=== PATIENT | female | born 1960 | race Caucasian/White ===

== ENCOUNTER 2022-10-09 16:10 | Inpatient (IN) | payer BC ==
--- OUTSIDE RECORDS SUMMARY | 2022-10-09 16:14 | XMS REPORT | Continuity of Care Document ---
:1960 Author Organization [facility] t Address [address] [place] [address] [place] [id number] Care Team Providers Name Role Phone Asked, No Pcp Primary Care Physician Unavailable Jeanmarie MORELOS, Edgar Rodríguez Attending Clinician [phone] Crispin MORELOS, Boazmegan Maurer Attending Clinician Micah MORELOS, Jenny Collazo Attending Clinician Doctor Unassigned, [place] Attending Clinician Unavailable SCOTTY RAMOS Attending Clinician Unavailable Neurology Attending Clinician Unavailable JEREL CAMACHO Attending Clinician Unavailable Jerel Camacho MD Attending Clinician Lab, Adc Fam Pob I Attending Clinician Unavailable Farida Mtz Attending Clinician FARIDA MENA Attending Clinician Unavailable BOAZ ROA Admitting Clinician Unavailable Payers Payer Name Policy Type Policy Number Effective Date Expiration Date S ource Problems Condition Condition Condition Status Onset Resolution Last Treating Co mments Source Name Details Category Date Date Treatment Clinician Date 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 11-07 nodule nodule 00:00: Hospita 00 l Pulmonary Pulmonary Disease Active Met hodi emphysema emphysema 11-07 00:00: Hospita 00 l Depression Depression Disease Active M ethodi 11-07 00:00: Hospita 00 l Arthritis Arthritis Disease Active Met hodi 11-07 st 00:00: Hospita 00 l Anxiety Anxiety Disease Active Methodi 6-22 st 00:00: Hospita 00 l Neuropathy Neuropathy Disease Active U nivers of both of both 9-16 ity of feet feet 00:00: [address] Neuropathy Neuropathy Disease Active M ethodi of both of both 9-16 st feet feet 00:00: Hospita 00 l COPD COPD Disease Active Univers (chronic (chronic ity of obstructiv obstructiv [place] [facility] pulmonary pulmonary Bran ch disease) disease) Fever, Fever, Diagnosis Active Common unspecifie unspecifie Sp dionte d fever d fever - [facility] cause cause [facility] Pulmonary Pulmonary Diagnosis Active C ommon emphysema, emphysema, Sp dionte unspecifie unspecifie - [facility] d d [facility] emphysema emphysema Luke s [facility] Center Cough Cough Diagnosis Active Common [facility] - [facility] Allergies, Adverse Reactions, Alerts Allergy Allergy Status Severity Reaction(s) Onset Inactive Treating Comm ents Source Name Type Date Date Clinician NO KNOWN Drug Active Univers ALLERGIE Class ity of S [facility] Social History Social Habit Start Date Stop Date Quantity Comments Source Exposure to [facility] University of SARS-CoV-2 (event) [facility] History SDAZ University o f Alcohol Std Drinks [place] [facility] [place] History [facility] University o f Alcohol Binge [facility] [place] History of tobacco Smokes tobacco Me thodist use daily Hospital Gender identity [facility] Sexual orientation [facility] Alcohol intake 2021-11-09 2021-11-09 Ex-drinker Confucianism 00:00:00 00:00:00 (finding) Hospital History of Social 2021-11-09 2021-11-[address] function 00:00:00 00:00:00 Hospital Cigarettes smoked 2021-11-07 2021-11-[address] current (pack per 00:00:00 00:00:00 Hospita l day) - Reported Cigarette 2021-11-07 2021-11-07 Confucianism pack-years 00:00:00 00:00:00 Hospital Tobacco use and 2021-11-07 2021-11-07 Smokeless Confucianism exposure 00:00:00 00:00:00 tobacco non-user Hospital History SDOH 2019-01-21 2019-01-21 1 University o f Alcohol Frequency 00:00:00 00:00:00 [place] [facility] Sex Assigned At [birth year] Confucianism 00:00:00 00:00:00 Hospital Smoking Status Start Date Stop Date Source Smokes tobacco daily 2021-11-07 00:00:00 [facility] Unknown if ever smoked [facility] Medications Ordered Filled Start Stop Current Ordering Indication Dosage Frequency Signature Comments Components Source Medication Medication Date Date Medication? Clinician (SIG) Name Name levoFLOXaci 2021- No 750mg QD Take 1 Me thodi n 6-26 07-[address] (Levaquin) 00:00: 04:59 (750 mg Hos margaret 750 MG 00 :00 total) by l tablet mouth daily for 7 days. Trelegy Yes 1{each} QD Inhale 1 Met hodi Ellipta 4-[address] 100-62.5-25 00:00: daily. Hosp jamar mcg blister 00 l with device powder for inhalation azithromyci 2021- No 250mg QD Take 250 Methodi n 3-30 06-[address] (ZITHROMAX) 00:00: 00:00 mouth Hosp jamar 250 MG 00 :00 daily. l tablet albuterol Yes 1{puff} Inhale 1 M ethodi (PROAIR 3-[address] HFA) 90 00:00: needed. Hospita mcg/actuati 00 l on inhaler ALBUTEROL Yes [id number] INHALE TWO Univers 90 2-13 (2) PUFFS ity of mcg/actuati 00:00: [place]TH [place] inhaler 00 EVERY 4 Medica l HOURS Branch NEEDED FOR WHEEZING OR SHORTNESS OF BREATH. ALBUTEROL Yes [id number] INHALE TWO Univers 90 2-13 (2) PUFFS ity of mcg/actuati 00:00: [place]TH [place] inhaler 00 EVERY 4 Medica l HOURS Branch NEEDED FOR WHEEZING OR SHORTNESS OF BREATH. ALBUTEROL Yes [id number] INHALE TWO Univers 90 2-13 (2) PUFFS ity of mcg/actuati 00:00: [place]TH [place] inhaler 00 EVERY 4 Medica l HOURS Branch NEEDED FOR WHEEZING OR SHORTNESS OF BREATH. ALBUTEROL Yes [id number] INHALE TWO Univers 90 2-13 (2) PUFFS ity of mcg/actuati 00:00: [place]TH [place] inhaler 00 EVERY 4 Medica l HOURS Branch NEEDED FOR WHEEZING OR SHORTNESS OF BREATH. ALBUTEROL Yes [id number] INHALE TWO Univers 90 2-13 (2) PUFFS ity of mcg/actuati 00:00: [place]TH [place] inhaler 00 EVERY 4 Medica l HOURS Branch NEEDED FOR WHEEZING OR SHORTNESS OF BREATH. ALBUTEROL Yes [id number] INHALE TWO Univers 90 2-13 (2) PUFFS ity of mcg/actuati 00:00: [place]TH [place] inhaler 00 EVERY 4 Medica l HOURS Branch NEEDED FOR WHEEZING OR SHORTNESS OF BREATH. albuterol-i 2018-05 Yes 1{puff} Inhale 1 Univers pratropium 1-19 Puff 4 ity of 20-100 20:45: (four) [place] mcg/actuati 33 times Medical on inhaler daily. Branch albuterol-i 2018-05 Yes 1{puff} Inhale 1 Univers pratropium 1-19 Puff 4 ity of 20-100 20:45: (four) [place] mcg/actuati 33 times Medical on inhaler daily. Branch albuterol-i 2018-05 Yes 1{puff} Inhale 1 Univers pratropium 1-19 Puff 4 ity of 20-100 20:45: (four) [place] mcg/actuati 33 times Medical on inhaler daily. Branch albuterol-i 2018-05 Yes 1{puff} Inhale 1 Univers pratropium 1-19 Puff 4 ity of 20-100 20:45: (four) [place] mcg/actuati 33 times Medical on inhaler daily. Branch albuterol-i 2018-05 Yes 1{puff} Inhale 1 Univers pratropium 1-19 Puff 4 ity of 20-100 20:45: (four) [place] mcg/actuati 33 times Medical on inhaler daily. Branch albuterol-i 2018-05 Yes 1{puff} Inhale 1 Univers pratropium 1-19 Puff 4 ity of 20-100 20:45: (four) [place] mcg/actuati 33 times Medical on inhaler daily. Branch venlafaxine Yes [id number] 37.5mg Take 1 Univers XR (EFFEXOR 9-24 capsule by it y of XR) 37.5 mg 00:00: mouth [place] 24 hr 00 daily with Medical capsule breakfast. Branch STOP CITALOPRAM . venlafaxine Yes [id number] 37.5mg Take 1 Univers XR (EFFEXOR 9-24 capsule by it y of XR) 37.5 mg 00:00: mouth [place] 24 hr 00 daily with Medical capsule breakfast. Branch STOP CITALOPRAM . venlafaxine Yes [id number] 37.5mg Take 1 Univers XR (EFFEXOR 9-24 capsule by it y of XR) 37.5 mg 00:00: mouth [place] 24 hr 00 daily with Medical capsule breakfast. Branch STOP CITALOPRAM . venlafaxine Yes [id number] 37.5mg Take 1 Univers XR (EFFEXOR 9-24 capsule by it y of XR) 37.5 mg 00:00: mouth [place] 24 hr 00 daily with Medical capsule breakfast. Branch STOP CITALOPRAM . venlafaxine Yes [id number] 37.5mg Take 1 Univers XR (EFFEXOR 9-24 capsule by it y of XR) 37.5 mg 00:00: mouth [place] 24 hr 00 daily with Medical capsule breakfast. Branch STOP CITALOPRAM . venlafaxine Yes [id number] 37.5mg Take 1 Univers XR (EFFEXOR 9-24 capsule by it y of XR) 37.5 mg 00:00: mouth [place] 24 hr 00 daily with Medical capsule breakfast. Branch STOP CITALOPRAM . albuterol 2020- No [id number] 2{puff} Inhale 2 Univers 90 924 02-13 Puffs ity of mcg/actuati 00:00: 00:00 every 4 [place] inhaler 00 :00 (four) Medical hours as Branch needed for Wheezing or Shortness of Breath. lidocaine Yes [id number] 5mL Take 5 mL Univers 2% viscous 9-21 by mouth ity o f (LIDOCAINE 00:00: every 4 [place] VISCOUS) 2 00 (four) Medical % solution hours as Branc h needed for Local anesthesia . lidocaine Yes [id number] 5mL Take 5 mL Univers 2% viscous 9-21 by mouth ity o f (LIDOCAINE 00:00: every 4 [place] VISCOUS[place] 2 00 (four) Medical % solution hours as Branc h needed for Local anesthesia . lidocaine 2019-0 Yes [id number] 5mL Take 5 mL Univers 2% viscous 9-21 by mouth ity o f (LIDOCAINE 00:00: every 4 [place] VISCOUS[place] 2 00 (four) Medical % solution hours as Branc h needed for Local anesthesia . lidocaine 2019-0 Yes [id number] 5mL Take 5 mL Univers 2% viscous 9-21 by mouth ity o f (LIDOCAINE 00:00: every 4 [place] VISCOUS) 2 00 (four) Medical % solution hours as Branc h needed for Local anesthesia . lidocaine 2019-0 Yes [id number] 5mL Take 5 mL Univers 2% viscous 9-21 by mouth ity o f (LIDOCAINE 00:00: every 4 [place] VISCOUS) 2 00 (four) Medical % solution hours as Branc h needed for Local anesthesia . lidocaine 2018-0 Yes [id number] 5mL Take 5 mL Univers 2% viscous 9-21 by mouth ity o f (LIDOCAINE 00:00: every 4 [place] VISCOUS) 2 00 (four) Medical % solution hours as Branc h needed for Local anesthesia . gabapentin 2019-0 Yes [id number] 100mg Take 1 Univers 100 mg 9-05 capsule by ity of capsule 00:00: mouth 3 (three) Medical times Branch daily. gabapentin 2019-0 Yes Univers 100 mg 9-05 ity of capsule 00:00: [place] [facility] citalopram 2019-0 Yes Univers 10 mg 9-05 ity of tablet 00:00: [place] 00 Medical Branch gabapentin 2019-0 Yes [id number] 100mg Take 1 Univers 100 mg 9-05 capsule by ity of capsule 00:00: mouth 3 (three) Medical times Branch daily. gabapentin 2019-0 Yes Univers 100 mg 9-05 ity of capsule 00:00: [place] [facility] citalopram 2019-0 Yes Univers 10 mg 9-05 ity of tablet 00:00: Medical Branch gabapentin 2019-0 Yes [id number] 100mg Take 1 Univers 100 mg 9-05 capsule by ity of capsule 00:00: mouth 3 (three) Medical times Branch daily. gabapentin 2019-0 Yes Univers 100 mg 9-05 ity of capsule 00:00: [place] 00 Medical Branch citalopram 2019-0 Yes Univers 10 mg 9-05 ity of tablet 00:00: 00 Medical Branch gabapentin 2019-0 Yes [id number] 100mg Take 1 Univers 100 mg 9-05 capsule by ity of capsule 00:00: mouth 3 (three) Medical times Branch daily. citalopram 2019-0 Yes Univers 10 mg 9-05 ity of tablet 00:00: 00 Medical Branch gabapentin 2019-0 Yes [id number] 100mg Take 1 Univers 100 mg 9-05 capsule by ity of capsule 00:00: mouth 3 (three) Medical times Branch daily. citalopram 2019-0 Yes Univers 10 mg 9-05 ity of tablet 00:00: 00 Medical Branch gabapentin 2019-0 Yes [id number] 100mg Take 1 Univers 100 mg 9-05 capsule by ity of capsule 00:00: mouth 3 (three) Medical times Branch daily. citalopram 2019-0 Yes Univers 10 mg 9-05 ity of tablet 00:00: 00 Medical Branch gabapentin 2019-0 Yes [id number] 100mg Take 1 Univers 100 mg 9-05 capsule by ity of capsule 00:00: mouth 3 (three) Medical times Branch daily. citalopram 2019-0 Yes [id number] 10mg Take 1 Univers 10 mg 9-05 tablet by ity of tablet 00:00: mouth 00 daily. Medical Branch gabapentin 2019-0 Yes [id number] 100mg Take 1 Univers 100 mg 9-05 capsule by ity of capsule 00:00: mouth 3 (three) Medical times Branch daily. citalopram 2019-0 Yes [id number] 10mg Take 1 Univers 10 mg 9-05 tablet by ity of tablet 00:00: mouth 00 daily. Medical Branch gabapentin 2019-0 Yes [id number] 100mg Take 1 Univers 100 mg 9-05 capsule by ity of capsule 00:00: mouth 3 (three) Medical times Branch daily. citalopram 2019-0 Yes [id number] 10mg Take 1 Univers 10 mg 9-05 tablet by ity of tablet 00:00: mouth [place] 00 daily. Medical Branch gabapentin 2019-0 Yes [id number] 100mg Take 1 Univers 100 mg 9-05 capsule by ity of capsule 00:00: mouth 3 [place] 00 (three) Medical times Branch daily. citalopram 2019- Yes [id number] 10mg Take 1 Univers 10 mg 9-05 tablet by ity of tablet 00:00: mouth [place] 00 daily. Medical Branch gabapentin 2018- 2020- No Univer s 100 mg 9-05 11-10 ity of capsule 00:00: 00:00 [place] 00 :00 Medical Branch STIOLTO 2019- Yes INHALE TWO Univ ers RESPIMAT 6-21 (2) ity of 2.5-2.5 00:00: PUFF(S) BY [place] mcg/actuati 00 MOUTH Medical on Mist EVERY 24 Branch HOURS. STIOLTO Yes INHALE TWO Univ ers RESPIMAT 6-21 (2) ity of 2.5-2.5 00:00: PUFF(S) BY [place] mcg/actuati 00 MOUTH Medical on Mist EVERY 24 Branch HOURS. STIOLTO Yes INHALE TWO Univ ers RESPIMAT 6-21 (2) ity of 2.5-2.5 00:00: PUFF(S) BY [place] mcg/actuati 00 MOUTH Medical on Mist EVERY 24 Branch HOURS. STIOLTO Yes INHALE TWO Univ ers RESPIMAT 6-21 (2) ity of 2.5-2.5 00:00: PUFF(S) BY [place] mcg/actuati 00 MOUTH Medical on Mist EVERY 24 Branch HOURS. STIOLTO Yes INHALE TWO Univ ers RESPIMAT 6-21 (2) ity of 2.5-2.5 00:00: PUFF(S) BY [place] mcg/actuati 00 MOUTH Medical on Mist EVERY 24 Branch HOURS. STIOLTO Yes INHALE TWO Univ ers RESPIMAT 6-21 (2) ity of 2.5-2.5 00:00: PUFF(S) BY [place] mcg/actuati 00 MOUTH Medical on Mist EVERY 24 Branch HOURS. STIOLTO Yes INHALE TWO Univ ers RESPIMAT 6-21 (2) ity of 2.5-2.5 00:00: PUFF(S) BY [place] mcg/actuati 00 MOUTH Medical on Mist EVERY 24 Branch HOURS. STIOLTO Yes INHALE TWO Univ ers RESPIMAT 6-21 (2) ity of 2.5-2.5 00:00: PUFF(S) BY [place] mcg/actuati 00 MOUTH Medical on Mist EVERY 24 Branch HOURS. STIOLTO Yes INHALE TWO Univ ers RESPIMAT 6-21 (2) ity of 2.5-2.5 00:00: PUFF(S) BY [place] mcg/actuati 00 MOUTH Medical on Mist EVERY 24 Branch HOURS. STIOLTO Yes INHALE TWO Univ ers RESPIMAT 6-21 (2) ity of 2.5-2.5 00:00: PUFF(S) BY [place] mcg/actuati 00 MOUTH Medical on Mist EVERY 24 Branch HOURS. Spiriva Spiriva 2018- No Silvia Fay 2 puffs Common Respimat Respimat 05-28 Spirit 00:00: 00:00 - [facility] 00 :00 [facility] PredniSONE PredniSONE 2019- No Silvia Fay 1 tablet Common 05-28 Spirit 00:00: 00:00 - [facility]I 00 :00 [facility] Azithromyci Azithromyci 2018- No Silvia Fay 2 table ts Common n n 05-28 on the Spirit 00:00: 00:00 first day, - [facility] 00 :[address] [facility] daily for Medical 4 days Center albuterol Yes 2{puff} Inhale 2 U nivers 90 2-17 Puffs ity of mcg/actuati 00:00: every 4 [place] on inhaler 00 (four) Medical hours as Branch needed for Wheezing or Shortness of Breath. oxymetazoli Yes 1{spray Use 1 Un janet ne 0.05 % 2-17 } Kathleen in ity of nasal spray 00:00: each [place] 00 nostril 2 Medical (two) Branch times daily. DISCARD AFTER 3 DAYS. USE MAY BE ADDICTIVE AFTER 4 DAYS USE. albuterol Yes 2{puff} Inhale 2 U nivers 90 2-17 Puffs ity of mcg/actuati 00:00: every 4 [place] on inhaler 00 (four) Medical hours as Branch needed for Wheezing or Shortness of Breath. sod Yes 1{bottl Use 1 Univers chlor-bicar 2-17 e} Bottle in ity of b-squeez 00:00: each [place] bottle 00 nostril 2 Medical (NEILMED (two) Branch SINUS RINSE times COMPLETE) daily. Use pkdv in hot shower 1 hour before bedtime albuterol Yes 2{puff} Inhale 2 U nivers 90 2-17 Puffs ity of mcg/actuati 00:00: every 4 [place] on inhaler 00 (four) Medical hours as Branch needed for Wheezing or Shortness of Breath. albuterol Yes 2{puff} Inhale 2 U nivers 90 2-17 Puffs ity of mcg/actuati 00:00: every 4 [place] on inhaler 00 (four) Medical hours as Branch needed for Wheezing or Shortness of Breath. albuterol Yes 2{puff} Inhale 2 U nivers 90 2-17 Puffs ity of mcg/actuati 00:00: every 4 [place] on inhaler 00 (four) Medical hours as Branch needed for Wheezing or Shortness of Breath. oxymetazoli 2019- No 1{spray Use 1 U nivers ne 0.05 % 17 -05 } [place] in ity o f nasal spray 00:00: 00:00 each [place] 00 :00 nostril 2 Medical (two) Branch times daily. DISCARD AFTER 3 DAYS. USE MAY BE ADDICTIVE AFTER 4 DAYS USE. sod 2019- No 1{bottl Use 1 Univers chlor-bicar 2-17 09-05 e} Bottle in it y of b-squeez 00:00: 00:00 each [place] bottle 00 :00 nostril 2 Medical (NEILMED (two) Branch SINUS RINSE times COMPLETE) daily. Use pkdv in hot shower 1 hour before bedtime oxymetazoli 2019- No 1{spray Use 1 U nivers ne 0.05 % 217 09-05 } [place] in ity o f nasal spray 00:00: 00:00 each [place] 00 :00 nostril 2 Medical (two) Branch times daily. DISCARD AFTER 3 DAYS. USE MAY BE ADDICTIVE AFTER 4 DAYS USE. sod 2019- No 1[facility]l [facility]} Bottle in it y of b-squeez 00:00: 00:00 each [place] bottle 00 :00 nostril 2 Medical (NEILMED (two) Branch SINUS RINSE times COMPLETE) daily. Use pkdv in hot shower 1 hour before bedtime ProAir HFA ProAir HFA Yes Silvia Fay 2 puffs as Common needed Spirit - [facility] Immunizations Ordered Filled Immunization Date Status Comments Sourc e Immunization Name Name SARS-COV-2 COVID-19 2020-06-24 Completed Unive rsity of MODERNA VACCINE 00:00:00 [place] Med ical Branch MODERNA COVID-19 2020-06-24 Completed Methodis t MRNA VACCINATION 00:00:00 [facility] MODERNA COVID-19 2020-05-27 Completed Methodis t MRNA VACCINATION 00:00:00 Hospital Vital Signs Vital Name Observation Time Observation Value Comments Source Systolic blood 2019-01-21 14:21:00 108 mm[Hg] [facility] Diastolic blood 2019-01-21 14:21:00 62 mm[Hg] Unive [facility] Heart rate 2019-01-21 14:21:00 73 /min [facility] Body temperature 2019-01-21 14:21:00 [facility].06 [facility] height 2019-01-21 14:21:00 157.5 cm [facility] Body weight 2019-01-21 14:21:00 45.904 kg [facility] BMI 2019-01-21 14:21:00 18.51 kg/m2 [facility] Systolic blood 2021-11-07 19:43:00 105 mm[Hg] [facility] pressure Diastolic blood 2021-11-07 19:43:00 52 mm[Hg] [facility] pressure Heart rate 2021-11-07 19:43:00 147 [facility] O[facility] in 2021-11-07 19:43:00 91 /min [facility] Arterial blood by Pulse oximetry Respiratory rate 2021-11-07 19:20:00 27 /min [facility] Body temperature 2021-11-07 18:56:00 36.61 [facility] Body height 2021-11-07 15:28:00 157.5 cm [facility] Body weight 2021-11-07 15:28:00 43.863 kg [facility] BMI 2021-11-07 15:28:00 17.69 kg/m2 [facility] Procedures Procedure Date / Time Performing Clinician Source Performed PET CT SKULL BASE TO MID 2022-04-23 18:16:48 [facility] THIGH A. POC GLUCOSE 2022-04-23 16:46:00 [facility] A. SURGICAL PATHOLOGY REQUEST 2021-11-07 20:43:00 [facility] XR CHEST 1 VW PORTABLE 2021-11-07 19:10:13 [facility] CYTOLOGY 2021-11-07 19:00[facility]00 [facility] REQUEST RESPIRATORY CULTURE 2021-11-07 19:00:00 [facility] AFB CULTURE 2021-11-07 19:00:00 [facility] spital [facility] FUNGUS CULTURE 2021-11-07 19:00:00 [facility] spital [facility] RESPIRATORY PATHOGEN PANEL 2021-11-07 19:00:00 [facility] WITH COVID-19 RT-PCR [facility] GRAM STAIN 2021-11-07 19:00:00 [facility] Ho spital [place] AFB STAIN 2021-11-07 19:00:00 [facility] spital [place] CYTOMEGALOVIRUS BY PCR 2021-11-07 19:00:00 [facility] VARICELLA ZOSTER BY PCR 2021-11-07 19:00:00 [facility] BAL CELL COUNT AND 2021-11-07 19:00:00 [place] DIFFERENTIAL [facility] BAL T4T8 2021-11-07 19:00:00 Crispin, Boaz [facility]uc[facility]ism Ho spital [place] OR [place] > 1 HOUR 2021-11-07 18:45:00 Roa, Boaz [facility]uc[facility]ism Ho spital [place] CYTOLOGY 2021-11-07 17:47:00 Crispin, Boaz Confucianism Ho spital (NON-GYNECOLOGICAL) [place] REQUEST NE AN ELECTIVE 2021-11-07 17:18:00 [facility] ENDOTRACHEAL AIRWAY BRONCHOSCOPY 2021-11-07 17:11:00 Boaz Roa Ho spital [place] POC PANEL 2021-11-07 15:51:00 Crispin Boaz [facility]uc[facility]ism Ho spital [place] PROTHROMBIN TIME WITH INR, 2021-11-07 15:48:00 Boaz Roa [facility] I-STAT [place] ECG 12-LEAD 2021-11-07 15:35:42 [facility] CT CHEST WO CONTRAST 2021-10-22 18:51:46 Boaz Roa [facility] VACCINATIONS - CONSENTS, 2020-07-10 06:01:00 Doctor Unassigned, [facility] ELIGIBILITY, HISTORY [place] [facility] MAGNESIUM 2019-01-21 14:57:00 Jerel Camacho [facility] VITAMIN B12, LEVEL 2019-01-21 14:57:00 Jerel Camacho [facility] THYROID STIMULATING 2019-01-21 14:57:[address] [facility] HORMONE [facility] COMP. METABOLIC PANEL 2019-01-21 14:57:00 [id number] CBC WITH DIFFERENTIAL 2019-01-21 14:57:00 Jerel Camacho Un [facility] GLYCOSYLATED HEMOGLOBIN 2019-01-21 14:57:[address] [facility] (A1C) [facility] HCV ANTIBODY 2019-01-21 14:57:00 Jerel Camacho [facility] VITAMIN D, 25-OH 2019-01-21 14:57:00 Jerel Camacho [facility] ADC OR CARYL ANDREA - RPR 2019-01-21 14:57:00 Jerel Camacho [facility] CONSENT/REFUSAL FOR 2019-01-21 13:36:14 Doctor Unassigned, [facility] DIAGNOSIS AND TREATMENT [place] [facility] [place] ASSIGNMENT OF BENEFITS 2019-01-21 13:35:57 Doctor Unassigned, [facility] [place] [facility] [place] Plan of Care Planned Activity Planned Date Details Comments Source Future Scheduled 2022-08-20 Pneumococcal Vaccine: [facility] Test 07:42:51 Pediatrics (0 to 5 Years) and At-Risk Patients (6 to 64 Years) (1 - PCV) [code = Pneumococcal Vaccine: Pediatrics (0 to 5 Years) and At-Risk Patients (6 to 64 Years) (1 - PCV)] Future Scheduled 2022-08-20 Hepatitis C screening [facility] Test 07:42:51 (procedure) [code = 464760870] Future Scheduled 2022-08-20 Screening for [facility] Test 07:42:51 malignant neoplasm of cervix (procedure) [code = 476374438] Future Scheduled 2022-08-20 BREAST CANCER [facility] Test 07:42:51 SCREENING [code = BREAST CANCER SCREENING] Future Scheduled 2022-08-20 COLONOSCOPY SCREENING [facility] Test 07:42:51 [code = COLONOSCOPY SCREENING] Future Scheduled 2022-08-20 Screening for [facility] Test 07:42:51 malignant neoplasm of lung (procedure) [code = 124160598] Future Scheduled 2022-08-20 SHINGLES VACCINES (1 Met [facility] Test 07:42:51 of 2) [code = SHINGLES VACCINES (1 of 2)] Future Scheduled 2022-08-20 COVID-19 VACCINE (3 - Me [facility] [place] [facility] Test 07:42:51 Booster for Moderna series) [code = COVID-19 VACCINE (3 - Booster for Moderna series)] Future Scheduled 2022-08-20 INFLUENZA VACCINE Method t Hospital Test 07:42:51 [code = INFLUENZA VACCINE] Encounters Start End Encounter Admission Attending Care Care Encounter Source Date/Time Date/Time Type Type Clinicians Facility Department ID 2022-04-23 2022-04-23 [facility] Jeanmarie [id number] Methodi 10:36:40 23:59:00 Encounter Edgar A. [id number] [id number] Hospit a .[id number] l .8 2022-04-23 2022-04-23 Outpatient JEANMARIE, [facility] [id number] [place] 00:00:00 00:00:00 EDGAR Ludwig[address] [facility] 2022-04-23 2022-04-23 Travel [id number] Methodi 00:00:00 00:00:[id number] 3.430.2.7 [id number] Ho spita .[id number] 084.8 l .8 2022-02-28 2022-02-28 Orders Jeanmarie, [id number] Methodi 00:00:00 00:00:00 Only Edgar Nobles. [id number] s t 3.430.2.7 Hospit a .[id number] l .8 2021-11-11 2021-11-11 Orders Roa, 1.2.840.1 [id number] [id number] Methodi 00:00:00 00:00:00 Only Boaz Erasto 60530.1.[address] 3.430.2.7 Hospit a .3.766614 l .8 2021-11-07 2021-11-07 [facility] Roa, 1.2.840.1 [id number] 050 [id number] Methodi 10:08:00 14:52:00 Encounter Boaz Erasto 10525.1.[address] 3.430.2.7 Hospit a .3.717862 l .8 2021-11-07 2021-11-07 Surgery [facility], 1.2.840.1 [id number] 2099 [id number] Methodi 12:00:00 14:00:[address] 3.430.2.7 Hospit a .3.655043 l .8 2021-11-07 2021-11-07 Anesthesia Obrien, 1.2.840.1 [id number] 21 [id number] Methodi 12:12:00 13:58:00 Event Jenny Collazo 58703.1.1 676 s t 3.430.2.7 Hospit a .3.713069 l .8 2021-11-07 2021-11-07 Travel 1.2.840.1 1.2.311.375 2453 610282 Methodi 00:00:00 00:00:[address] 3.430.2.7 0.2.7.3.698 Ho spita .3.672425 084.8 l .8 2021-11-07 2021-11-07 [facility] 021 17830 06791 [place] 00:00:00 00:00:00 BOAZ [address] 2021-10-24 2021-10-24 Documentat [facility], 1.2.840.1 [id number] 2 [id number] Methodi 00:00:00 00:00:00 ion Boaz Maurer 02083.1.[address] 3.430.2.7 Hospit a .3.654828 l .8 2021-10-22 2021-10-22 [facility], 1.2.840.1 [id number] 926 [id number] Methodi 13:08:52 23:59:00 Encounter Boazmegan Maurer 12045.1.[address] 3.430.2.7 Hospit a .3.841046 l .8 2021-10-22 2021-10-22 Travel 1.2.840.1 1.2.864.217 3696 [id number] Methodi 00:00:00 00:00:[address] 3.430.2.7 0.2.7.3.698 Ho spita .3.796330 084.8 l .8 2021-10-22 2021-10-22 Outpatient [facility] [id number] 74961 [place] 00:00:00 00:00:00 BOAZ [address] 2021-10-11 2021-10-11 Travel 1.2.840.1 1.2.389.735 8291 [id number] Methodi 00:00:00 00:00:[address] 3.430.2.7 0.2.7.3.698 Ho spita .3.916963 084.8 l .8 2021-10-10 2021-10-10 Transcribe Crispin, 1.2.840.1 [id number] 2 [id number] Methodi 00:00:00 00:00:00 Orders Boaz Erasto 18819.1.[address] 3.430.2.7 Hospit a .3.660997 l .8 2020-07-10 2020-07-10 Orders Doctor SILVESTRE 1.2.840.114 [id number] Univers 00:00:00 00:00:00 Only Unassigned, MAICO 350.1.13.10 ity of [facility] 4.2.7.2.686 Skinny as [phone] [facility] [address] 2020-05-05 2020-05-05 [facility] [id number] Univers 13:00:00 13:00:00 SCOTTY itchau of [facility] 2020-04-27 2020-04-27 Letter Neurology UNIVERSIT 1.2.840.114 [id number] Univers 00:00:00 00:00:00 (Out) Y HEALTH 350.1.13.10 i ty of [place] [phone] [facility] [address] 2020-03-28 2020-03-28 [facility] [id number] Univers 16:30:00 16:30:00 WONDIFUL ity o f [facility] 2020-03-28 2020-03-28 [facility] 1.2.840.114 [id number] Univers 07:12:14 16:20:03 ne Visit Wondiful A Health 350.1.13.10 ity of [place] 4.2.7.2.686 Skinny as Professio [phone] [address] Office [facility] One 2019-12-05 2019-12-05 Laboratory Lab, Adc Fam Pob I [facility] 1.2. 840.114 [id number] Univers 10:31:21 10:51:21 Only Farida [facility] 350.1.13.10 ity of [place] 4.2.7.2.686 Skinny as Professio [phone] [address] Office [facility] One 2019-12-05 2019-12-[address] [facility] [id number] Univers 10:40:00 10:40:00 FARIDA ity of [facility] 2019-12-05 2019-12-05 Letter Doctor SILVESTRE 1.2.840.114 [id number] Univers 00:00:00 00:00:00 (Out) Unassigned, MAICO 350.1.13.10 ity of [place] [facility] 4.2.7.2.686 Skinny as [phone] [address] 2019-07-01 2019-07-01 [facility] 1.2.840.114 [id number] Univers 00:00:00 00:00:00 Wondiful A Health 350.1.13.10 ity of [place] 4.2.7.2.686 Skinny as Professio [phone] [address] Office [facility] One 2019-02-03 2019-02-03 Telephone Doug [facility] 1.2.840.114 [id number] Univers 00:00:00 00:00:00 Wondiful A Health 350.1.13.10 ity of [place] 4.2.7.2.686 Skinny as Professio [phone] [address] Office [facility] One 2019-01-27 2019-01-27 Telephone Doug [facility] 1.2.840.114 [id number] Univers 00:00:00 00:00:00 Wondiful [facility] Health 350.1.13.10 ity of [place] 4.2.7.2.686 Skinny as Professio [phone] [address] Office [facility] One 2019-01-21 2019-01-21 Office Doug [facility] 1.2.840.114 [id number] Univers 08:40:26 10:09:31 Visit [facility] Giuliano [facility] 350.1.13.10 ity of [place] 4.2.7.2.686 Skinny as Raymondio [phone] [place] [facility] [address] Office Building One 2019-01-21 2019-01-21 Orders Doctor SILVESTRE 1.2.840.114 [id number] Univers 00:00:00 00:00:00 Only Unassigned, MAICO 350.1.13.10 ity of [place] [facility] 4.2.7.2.686 Skinny as [phone] [facility] 00[address] 2018-05-27 2018-05-27 Outpatient [facility] [id number] Common 10:30:00 10:30:00 t [facility] [address] [facility] it Road [facility] Results Test Description Test Time Test Comments Results Result Comments Source POC glucose 2022-04-23 16:57:00 Test Item Value Reference Range Interpretation Comme [facility] POC glucose (test code = 47783-6) 97 mg/dL 65-99 [place] Specialist Name: Esperanza AidenDevice ID: [id number] [facility] InstituteAFB [id number] 01:13:00 Test Item Value Reference Range Interpretation Comments AFB culture No growth Specimen isolate (test after 6 weeks InformationSp ecimen code = 543-9) of Source: Bronch ial alveolar incubation. lavageSpecimen Site: RUL (Right Upper Lo be) [facility] [id number] 12:01:00 Test Item Value Reference Range Interpretation Comments Fungus culture No growth Specimen isolate (test after 4 weeks InformationSp ecimen code = 580-1) Source: Bronch ial alveolar lavageSpecimen Site: RUL (Right Upper Lo be) [facility] HospitalLegionella [id number] 16:31:00 Test Item Value Reference Interpretation Comments Range Legionella No Legionella Specimen culture isolate isolated. InformationS pecimen (test code = Source: Bronchi al 1656) alveolar lavage Specimen Site: RUL (Righ t Upper Lobe) [facility] InstituteNocardia [id number] 14:52:00 Test Item Value Reference Range Interpretation Comments Nocardia No Nocardia Specimen culture isolate isolated after Informatio nSpecimen (test code = 7 days. Source: Bronchi al 1808) alveolar lavage Specimen Site: RUL (Righ t Upper Lobe) [facility] HospitalS[facility] pathology [id number] 21:45:02 Test Item Value Reference Range Interpretation Comments Case number (test code = [id number]) Surgical pathology See link below for report (test code = PDF Lab Report 2844) Result status (test code This is Final Report = [id number]) for [id number] [facility] HospitalCytology (non-gynecological) [id number] 20:58:33 Test Item Value Reference Range Interpretation Comments Case number (test code = [id number]) Cytology See link below for (non-gynecological) PDF Lab Report report (test code = 1178) Result status (test code This is Final Report = [id number]) for [id number] [facility] HospitalAFB [id number] 19:19:00 Test Item Value Reference Range Interpretation Comments AFB stain No acid fast Specimen (test code = bacilli (AFB) InformationSpe cimen 676-7) seen. Source: Bronchi al alveolar lavageSpecimen Site: RUL (Right Upper Lo be) [facility] HospitalF[facility]us [id number] 18:03:00 Test Item Value Reference Range Interpretation Comments Fungus smear No fungi Specimen (test code = observed. InformationSpec imen Source: 1443) Bronchial alveo lar lavageSpecimen Site: RUL (Right Upper Lo be) [facility] HospitalRespiratory pathogen panel with COVID-19 [id number] 07:35:00 Test Item Value Reference Interpretation Comments Range Adenovirus PCR (test Not Detected Specime n code = 7092) InformationSpec imen Source: Bronchi al alveolar lavage Specimen Site: RUL (Righ t Upper Lobe) Coronavirus HKU1 PCR Not Detected (test code = 7093) Coronavirus NL63 PCR Not Detected (test code = 7094) Coronavirus 229E PCR Not Detected (test code = 7095) Coronavirus OC43 PCR Not Detected (test code = 7096) Human Not Detected metapneumovirus PCR (test code = 7097) Human Detected A rhinovirus/enterovir us PCR (test code = 7098) Influenza A PCR Not Detected (test code = 08108-5) Influenza A/H1 PCR Not Reported (test code = 7100) Influenza A/H3 PCR Not Reported (test code = 7102) Influenza A/H1-2009 Not Reported PCR (test code = 7101) Respiratory Not Detected syncytial virus PCR (test code = 15933-8) Parainfluenza virus Not Detected 1 PCR (test code = 7105) Parainfluenza virus Not Detected 2 PCR (test code = 7106) Parainfluenza virus Not Detected 3 PCR (test code = 7107) Parainfluenza virus Not Detected 4 PCR (test code = 7108) Bordetella pertussis Not Detected PCR (test code = 9058864) Bordetella Not Detected parapertussis PCR (test code = 4832042) Chlamydia pneumoniae Not Detected PCR (test code = 3753) Mycoplasma Not Detected pneumoniae PCR (test code = 7110) COVID-19 qualitative Not Detected RT-PCR result (test code = 60565-9) Lab Interpretation Abnormal (test code = 59718-6) [facility] [id number] 03:33:16 Test Item Value Reference Range Interpretation Comments Ventricular rate (test 63 code = 253) Atrial rate (test code = 63 255) NE interval (test code = 152 266) QRSD interval (test code 76 = 260) QT interval (test code = 430 264) QTC interval (test code 440 = 265) P axis 1 (test code = 81 267) QRS axis 1 (test code = 5 268) T wave axis (test code = 61 270) EKG impression (test Normal sinus code = 273) rhythm-Normal ECG-No previous ECGs available-Electronica lly Signed By Ana MORELOS, [facility] ([id number]) on 11/07/2021 10:33:14 PM [facility] HospitalGram [id number] 02:49:00 Test Item Value Reference Range Interpretation Comments Gram stain No organisms Specimen isolate (test seen InformationSpe cimen code = 1469) Source: Bronchi al alveolar lavage Specimen Site: RUL (Righ t Upper Lobe) [facility] HospitalBAL cell count and [id number] 01:40:00 Test Item Value Reference Range Interpretation Comments BAL specimen RUL BAL source (test code = 27240-6) BAL cell count 0.050 m/mL 83% VIABILITY Normal (test code = ranges: Nonsmok ers: 0.007 87136-4) - 0.363 Smokers : 0 - 1.31 BAL PAMS (test 47 % Normal ranges : code = 44946-6) Nonsmokers: 65 - 100 Smokers: 81 - 1 00 BAL PMNS (test 53 % Normal ranges : code = 9306-2) Nonsmokers: 0 - 3 Smokers: 0 - 2 ROHIT (test code = BAL RUL ROHIT) [facility] HospitalVITAMIN D, [id number] 14:09:00 Test Item Value Reference Range Interpretation Comments VIT D 25OH (test 26 ng/mL 25-80 code = 0350706786) 25-Hydroxy D3 26.0 ng/mL (test code = 7195209625) 25-Hydroxy D2 <2.5 ng/mL (test code = 6156017384) ROHIT (test code = Test developed and ROHIT) characteristics determined by [facility] Laboratory Services. [facility], [id number] 14:09:00 Test Item Value Reference Range Interpretation Comments VIT D 25OH (test 26 ng/mL 25-80 code = 0303709227) 25-Hydroxy D3 26.0 ng/mL (test code = 3007314137) 25-Hydroxy D2 <2.5 ng/mL (test code = 8554791766) ROHIT (test code = Test developed and ROHIT) characteristics determined by [facility] Laboratory Services. [facility] OR CARYL ONLY - [id number] 05:15:00 Test Item Value Reference Range Interpretation Comments Lab Interpretation (test code = Normal 85913-8) [facility] OR CARYL ONLY - [id number] 05:15:00 Test Item Value Reference Range Interpretation Comments Lab Interpretation (test code = Normal 41510-0) [facility] Center[facility] [id number] 21:13:00 Test Item Value Reference Range Interpretation Comments HCV Semi-Quantitative (test code = 77249-6) [facility] [id number] 21:13:00 Test Item Value Reference Range Interpretation Comments HCV Semi-Quantitative (test code = 88454-1) [facility] B12, [id number] 20:57:00 Test Item Value Reference Range Interpretation Comments VIT B12 (test code = 402 pg/mL 240-930 1480279523) ROHIT (test code = ROHIT) Biotin has been reported to cause a positive bias, interpret results relative to patient's use of biotin. Lab Interpretation (test Normal code = 08672-1) [facility] Center[facility]IN B12, [id number] 20:57:00 Test Item Value Reference Range Interpretation Comments VIT B12 (test code = 402 pg/mL 240-930 0402005316) ROHIT (test code = ROHIT) Biotin has been reported to cause a positive bias, interpret results relative to patient's use of biotin. Lab Interpretation (test Normal code = 01670-2) [facility] CenterGLYCOSYLATED HEMOGLOBIN (A1C)2019-01-21 18:16:00 Test Item Value Reference Interpretation Comments Range HGB A1C (test code = See_Comment [Autom ated 4548-4) message] The system which generated this result transmitted reference range : 4.0 - 6.0 % NGSP. The reference range was not used to interpret this result as normal/abnormal . ROHIT (test code = %A1C (NGSP) ROHIT) Interpretation (ADA)4.8-5.6? Normal or (Non-Diabetic Range)5.7-6.4? Increased Risk (Pre-Diabetic)>6.5?D iabetes Indicated Lab Interpretation Normal (test code = 25785-7) [facility] CenterGLYCOSYLATED HEMOGLOBIN (A1C)2019-01-21 18:16:00 Test Item Value Reference Interpretation Comments Range HGB A1C (test code = See_Comment [Autom ated 4548-4) message] The system which generated this result transmitted reference range : 4.0 - 6.0 % NGSP. The reference range was not used to interpret this result as normal/abnormal . ROHIT (test code = %A1C (NGSP) ROHIT) Interpretation (ADA)4.8-5.6? Normal or (Non-Diabetic Range)5.7-6.4? Increased Risk (Pre-Diabetic)>6.5?D iabetes Indicated Lab Interpretation Normal (test code = 33611-2) [facility] CenterTHYROID STIMULATING [id number] 17:28:00 Test Item Value Reference Range Interpretation Comments TSH (test code = See_Comment [Automated message] 0769075627) The system [employer] generated this result transmitted ref erence range: 0.45 - 4 .70 mIU/L. The refe rence range was not u sed to interpret this result as normal/abnor mal. Lab Interpretation (test Normal code = 22617-2) [facility] CenterTHYROID STIMULATING [id number] 17:28:00 Test Item Value Reference Range Interpretation Comments TSH (test code = See_Comment [Automated message] 7301001826) The system [employer] generated this result transmitted ref erence range: 0.45 - 4 .70 mIU/L. The refe rence range was not u sed to interpret this result as normal/abnor mal. Lab Interpretation (test Normal code = 24782-6) [facility] CenterMAGNESIUM2019-09-05 16:33:00 Test Item Value Reference Range Interpretation Comments MAGNESIUM (test code = 1519743819) 2.1 mg/dL 1.7-2.4 Lab Interpretation (test code = Normal 69360-2) [facility]UM2019-09-05 16:33:00 Test Item Value Reference Range Interpretation Comments MAGNESIUM (test code = 5296829692) 2.1 mg/dL 1.7-2.4 Lab Interpretation (test code = Normal 06967-9) [facility] CenterCOMP. METABOLIC PANEL (55993)2019-01-21 16:32:00 Test Item Value Reference Range Interpretation Comments NA (test code = 143 mmol/L 135-145 9075680069) K (test code = 4.9 mmol/L 3.5-5 1238655631) CL (test code = 107 mmol/L 98-108 0753332230) CO2 TOTAL (test code = 27 mmol/L 23-31 3117629288) AGAP (test code = 2-16 3666319725) BUN (test code = 15 mg/dL 7-23 5078278845) GLUCOSE (test code = 74 mg/dL 70-110 4456403479) CREATININE (test code = 1.15 mg/dL 0.5-1.04 H 4248342321) TOTAL BILI (test code = 0.3 mg/dL 0.1-1.0 9664160672) CALCIUM (test code = 9.7 mg/dL 8.6-10.6 4288909632) T PROTEIN (test code = 7.3 g/dL 6.3-8.2 2018384652) ALBUMIN (test code = 4.6 g/dL 3.5-5 4173559779) ALK PHOS (test code = 71 U/L 34-122 7393952752) ALT(SGPT) (test code = 26 U/L 9-51 8126485487) AST(SGOT) (test code = 26 U/L 13-40 8465236863) eGFR Calculation mL/min/1.73m2 (Non-) (test code = 2189579075) eGFR Calculation mL/min/1.73m2 () (test code = 1341362241) ROHIT (test code = ROHIT) Association of Glomerular Filtration Rate (GFR) and Staging of Kidney Disease*+ + + +| GFR (mL/min/1.73 m2)?| With Kidney Damage?|?Without Kidney Damage+ --------+ --------+ +|?>90?|?S tage one?|? Normal?+ ---------+ ---------+ +|?60-89? |?Stage two?|? Decreased GFR? + --+ --+ ------+|?30-59?|?Stage three?|? Stage three? + --+ --+ ------+|?15-29?|?Stage four? |? Stage four?+ -------+ -------+ +|?<15 (or dialysis)?|?Stage five? |? Stage five?+ -------+ -------+ +*Each stage assumes the associated GFR level has been in effect for at least three months.?Stages 1 to 5, with or without kidney disease, indicate chronic kidney disease.Notes: Determination of stages one and two (with eGFR >59mL/min/1.73 m2) requires estimation of kidney damage for at least three months as defined by structural or functional abnormalities of the kidney, manifested by either:Pathological abnormalities or Markers of kidney damage (including abnormalities in the composition of the blood or urine or abnormalities in imaging tests). Lab Interpretation Abnormal (test code = 91338-7) [facility]. METABOLIC PANEL (83855)2019-01-21 16:32:00 Test Item Value Reference Range Interpretation Comments NA (test code = 143 mmol/L 135-145 1301320246) K (test code = 4.9 mmol/L 3.5-5 3618530559) CL (test code = 107 mmol/L 98-108 4155996086) CO2 TOTAL (test code = 27 mmol/L 23-31 3568425804) AGAP (test code = 2-16 1466541188) BUN (test code = 15 mg/dL 7-23 9390347287) GLUCOSE (test code = 74 mg/dL 70-110 4634028370) CREATININE (test code = 1.15 mg/dL 0.5-1.04 H 7553504963) TOTAL BILI (test code = 0.3 mg/dL 0.1-1.7 4099755596) CALCIUM (test code = 9.7 mg/dL 8.6-10.6 6059928506) T PROTEIN (test code = 7.3 g/dL 6.3-8.2 7856938814) ALBUMIN (test code = 4.6 g/dL 3.5-5 4428331419) ALK PHOS (test code = 71 U/L 34-122 5331382165) ALT(SGPT) (test code = 26 U/L 9-51 2061210974) AST(SGOT) (test code = 26 U/L 13-40 7167404581) eGFR Calculation mL/min/1.73m2 (Non-) (test code = 7494608619) eGFR Calculation mL/min/1.73m2 () (test code = 8242965873) ROHIT (test code = ROHIT) Association of Glomerular Filtration Rate (GFR) and Staging of Kidney Disease*+ + + +| GFR (mL/min/1.73 m2)?| With Kidney Damage?|?Without Kidney Damage+ --------+ --------+ +|?>90?|?S tage one?|? Normal?+ ---------+ ---------+ +|?60-89? |?Stage two?|? Decreased GFR? + --+ --+ ------+|?30-59?|?Stage three?|? Stage three? + --+ --+ ------+|?15-29??|?Stag e four? |? Stage four?+ -------+ -------+ +|?<15 (or dialysis)?|?Stage five? |? Stage five?+ -------+ -------+ +*Each stage assumes the associated GFR level has been in effect for at least three months.?Stages 1 to 5, with or without kidney disease, indicate chronic kidney disease.Notes: Determination of stages one and two (with eGFR >59mL/min/1.73 m2) requires estimation of kidney damage for at least three months as defined by structural or functional abnormalities of the kidney, manifested by either:Pathological abnormalities or Markers of kidney damage (including abnormalities in the composition of the blood or urine or abnormalities in imaging tests). Lab Interpretation Abnormal (test code = 48919-9) [facility] WITH [id number] 15:47:00 Test Item Value Reference Range Interpretation Comments WBC (test code = See_Comment [Automated 6690-2) message] The sy stem which generated this result transmitted reference range : 4.30 - 11.10 10*3/?L. The reference range was not used to interpret this result as normal/abnormal . RBC (test code = See_Comment [Automated 789-8) message] The sy stem which generated this result transmitted reference range : 3.93 - 5.25 10*6/?L. The reference range was not used to interpret this result as normal/abnormal . HGB (test code = 14.2 g/dL 11.6-15 718-7) HCT (test code = 41.9 % 35.7-45.2 4544-3) MCV (test code = 93.3 fL 80.6-95.5 787-2) MCH (test code = 31.6 pg 25.9-32.8 785-6) MCHC (test code = 33.9 g/dL 31.6-35.1 786-4) RDW-SD (test code = 42.3 fL 39-49.9 09601-5) RDW-CV (test code = 12.2 % 12-15.5 788-0) PLT (test code = See_Comment [Automated 777-3) message] The sy stem which generated this result transmitted reference range : 166 - 358 10*3/ ?L. The reference r tanja was not used to interpret this result as normal/abnormal . MPV (test code = 8.5 fL 9.5-12.9 L 78558-3) NRBC/100 WBC (test See_Comment [Automat ed code = 9897233028) message] The system which generated this result transmitted reference range : 0.0 - 10.0 /100 WBCs. The refer ence range was not u sed to interpret th is result as normal/abnormal . NRBC x10^3 (test code <0.01 See_Comment [Auto mated = 6420251560) message] The s ystem which generated this result transmitted reference range : 10*3/?L. The reference range was not used to interpret this result as normal/abnormal . GRAN MAT (NEUT) % 65.8 % (test code = 770-8) IMM GRAN % (test code 0.20 % = 5646246138) LYMPH % (test code = 23.3 % 736-9) MONO % (test code = 8.9 % 5905-5) EOS % (test code = 1.4 % 713-8) BASO % (test code = 0.4 % 706-2) GRAN MAT x10^3(ANC) 3.19 10*3/uL 1.88-7.09 (test code = 7360206245) IMM GRAN x10^3 (test <0.03 0-0.06 code = 3997658670) LYMPH x10^3 (test code 1.13 10*3/uL 1.32-3.29 L = 731-0) MONO x10^3 (test code 0.43 10*3/uL 0.33-0.92 = 742-7) EOS x10^3 (test code = 0.07 10*3/uL 0.03-0.39 711-2) BASO x10^3 (test code <0.03 0.01-0.07 = 704-7) Lab Interpretation Abnormal (test code = 66146-9) [facility] WITH [id number] 15:47:00 Test Item Value Reference Range Interpretation Comments WBC (test code = See_Comment [Automated 4590-2) message] The sy stem which generated this result transmitted reference range : 4.30 - 11.10 10*3/?L. The reference range was not used to interpret this result as normal/abnormal . RBC (test code = See_Comment [Automated 676-8) message] The sy stem which generated this result transmitted reference range : 3.93 - 5.25 10*6/?L. The reference range was not used to interpret this result as normal/abnormal . HGB (test code = 14.2 g/dL 11.6-15 718-7) HCT (test code = 41.9 % 35.7-45.2 4544-3) MCV (test code = 93.3 fL 80.6-95.5 787-2) MCH (test code = 31.6 pg 25.9-32.8 785-6) MCHC (test code = 33.9 g/dL 31.6-35.1 786-4) RDW-SD (test code = 42.3 fL 39-49.9 26206-1) RDW-CV (test code = 12.2 % 12-15.5 788-0) PLT (test code = See_Comment [Automated 777-3) message] The sy stem which generated this result transmitted reference range : 166 - 358 10*3/ ?L. The reference r tanja was not used to interpret this result as normal/abnormal . MPV (test code = 8.5 fL 9.5-12.9 L 68356-7) NRBC/100 WBC (test See_Comment [Automat ed code = 7703855013) message] The system which generated this result transmitted reference range : 0.0 - 10.0 /100 WBCs. The refer ence range was not u sed to interpret th is result as normal/abnormal . NRBC x10^3 (test code <0.01 See_Comment [Auto mated = 6192224693) message] The s ystem which generated this result transmitted reference range : 10*3/?L. The reference range was not used to interpret this result as normal/abnormal . GRAN MAT (NEUT) % 65.8 % (test code = 770-8) IMM GRAN % (test code 0.20 % = 4880668442) LYMPH % (test code = 23.3 % 736-9) MONO % (test code = 8.9 % 5905-5) EOS % (test code = 1.4 % 713-8) BASO % (test code = 0.4 % 706-2) GRAN MAT x10^3(ANC) 3.19 10*3/uL 1.88-7.09 (test code = 4182080006) IMM GRAN x10^3 (test <0.03 0-0.06 code = 0585110122) LYMPH x10^3 (test code 1.13 10*3/uL 1.32-3.29 L = 731-0) MONO x10^3 (test code 0.43 10*3/uL 0.33-0.92 = 742-7) EOS x10^3 (test code = 0.07 10*3/uL 0.03-0.39 711-2) BASO x10^3 (test code <0.03 0.01-0.07 = 704-7) Lab Interpretation Abnormal (test code = 93682-6) [facility]"
[2022-10-09 16:59] LABS: Absolute Lymphocytes (CBC) 0.9 K/uL (0.7-4.9); Hematocrit 38.9 % (36.0-45.0); MCV 93.2 fL (80-100); MPV 5.9 fL (7.6-11.3); RBC Red Blood Cell Count 4.17 M/uL (3.86-4.86)
[2022-10-09 17:31] LABS: Albumin 3.7 g/dL (3.4-5.0); Bilirubin Total 0.4 mg/dL (0.2-1.0); Potassium 3.9 mEq/L (3.5-5.1); Protein, Total 7.3 g/dL (6.4-8.2)
[2022-10-09] MEDS ORDERED: SUCRALFATE 1 GM TABLET ONE ×2 (17:47→18:20)
[2022-10-09] MEDS ORDERED: PANTOPRAZOLE 40 MG INJ ONE (17:47)
[2022-10-09] MEDS ORDERED: NA CHLORIDE 0.9% 500 ML ONE (17:47)
[2022-10-09] MEDS ORDERED: ONDANSETRON 4 MG/2 ML VIAL ONE (17:47)
--- NOTE | 2022-10-09 18:16 | RAD REPORT ---
EXAM DESCRIPTION: CT - Abdomen Pelvis W Contrast - 10/09/2022 5:48 pm CLINICAL HISTORY: Abdominal pain COMPARISON: none. TECHNIQUE: Computed axial tomography of the abdomen pelvis was obtained. 100 cc Isovue-300 was admin istered intravenously. Oral contrast was not requested which limits evaluation of bowel and appendix All CT scans are performed using dose optimization technique as appropriate and may include automated exposure control or mA/KV adjustment according to patient size. FINDINGS: The liver, spleen, pancreas, adrenal and kidneys appear unremarkable. There is no evidence of diverticulitis. Hysterectomy. No adnexal masses IMPRESSION: No acute abnormality is displayed.
--- NOTE | 2022-10-09 18:54 | ER ---
Nurse's Notes [facility] Name: Caity Alvarez Age: 62 yrs Sex: Female : 1960 Arrival Date: 10/09/2022 Time: 16:10 Bed 14 Private MD: Diagnosis: Melena Presentation: 10/09 16:39 Chief complaint: Patient states: pain in abdomen and into left side, black stools, iw fever, vomiting, started last . Coronavirus screen: At this time, the client does not indicate any symptoms associated with coronavirus-19. Ebola Screen: Patient negative for fever greater than or equal to 101.5 degrees Fahrenheit, and additional compatible Ebola Virus Disease symptoms Patient denies exposure to infectious person. Patient denies travel to an Ebola-affected area in the 21 days before illness onset. No symptoms or risks identified at this time. Initial Sepsis Screen: Does the patient meet any 2 criteria? No. Patient's initial sepsis screen is negative. Does the patient have a suspected source of infection? No. Patient's initial sepsis screen is negative. Risk Assessment: Do you want to hurt yourself or someone else? Patient reports no desire to harm self or others. Onset of symptoms was October 03, 2022. 16:39 Method Of Arrival: Ambulatory iw 16:39 Acuity: LESLIE 3 iw Triage Assessment: 19:00 General: Appears in no apparent distress. comfortable, Behavior is calm, cooperative, nj1 appropriate for age. 19:00 Pain: Complains of pain in abdomen Pain currently is 8 out of 10 on a pain scale. nj1 Quality of pain is described as stabbing. Neuro: Level of Consciousness is awake, alert, obeys commands, Oriented to person, place, time, situation. Cardiovascular: Patient's skin is warm and dry. Respiratory: Airway is patent Respiratory effort is even, unlabored. GI: Reports upper abdominal pain, Patient currently denies indigestion, nausea, vomiting. Historical: - Allergies: 16:40 Hydrocodone-Acetaminophen; vomiting; iw - Home Meds: 16:40 Trelegy Ellipta inhalation [Active]; iw - PMHx: 16:40 COPD; iw - PSHx: 16:40 neck fusion; hysterectomy; section; iw - Immunization history:: Adult Immunizations not immunized, Client reports receiving the 2nd dose of the Covid vaccine. - Social history:: Smoking status: Smoking status: Patient reports the use of cigarette tobacco products, smokes one pack cigarettes per day. Screenin:00 [facility] ED Fall Risk Assessment (Adult) History of falling in the last 3 months, nj1 including since admission No falls in past 3 months (0 pts) Confusion or Disorientation No (0 pts) Intoxicated or Sedated No (0 pts) Impaired Gait No (0 pts) Mobility Assist Device Used No (0 pt) Altered Elimination No (0 pt) Score/Fall Risk Level 0 - 2 = Low Risk Oriented to surroundings, Maintained a safe environment, Hourly rounding (assess needs \T\ fall precautionary measures) done. 19:00 Abuse screen: Denies threats or abuse. Denies injuries from another. Nutritional [facility] screening: No deficits noted. Tuberculosis screening: No symptoms or risk factors identified. Assessment: 17:52 Reassessment: Patient not in room at this time. ms1 19:55 Reassessment: Patient appears in no apparent distress at this time. Patient and/or ms1 family updated on plan of care and expected duration. Pain level reassessed. Patient is alert, oriented x 3, equal unlabored respirations, skin warm/dry/pink. Pain: Complains of pain in abdomen. 19:55 Pain: Pain currently is 8 out of 10 on a pain scale. Quality of pain is described as ms1 stabbing. 21:00 Reassessment: Patient appears in no apparent distress at this time. No changes from [facility] previously documented assessment. Vital Signs: 16:39 BP 97 / 54; Pulse 74; Resp 16; Temp 98.4; Weight 42.18 kg; Height 5 ft. 2 in. ; Pain iw 8/10; 17:37 BP 123 / 54; Pulse 80; Resp 16; Temp 98.2; Pulse Ox 99% on R/A; rs5 18:30 BP 118 / 62; Pulse 66; Resp 17; Pulse Ox 100% on R/A; nj1 19:30 BP 112 / 64; Pulse 65; Resp 20; Pulse Ox 98% on R/A; Pain 8/10; nj1 16:39 Body Mass Index 17.01 (42.18 kg, 157.48 cm) iw 16:39 Pain Scale: Adult iw 19:30 Pain Scale: Adult ms1 ED Course: 16:12 Patient arrived in ED. mr 16:19 Jose Dudley MD is Attending Physician. bs3 16:40 Triage completed. iw 16:42 Arm band placed on. iw 16:56 Radiology exam delayed due to lab results not completed at this time. (BUN/Creatinine) jg10 IV insertion attempt and/or patient not having appropriate IV at this time. 17:35 Deedee Rain, CARMITA is Primary Nurse. nj1 17:50 CT Abd/Pelvis - IV Contrast Only In Process Unspecified. EDMS 18:52 Attending Physician role handed off by Jose Dudley MD rt 18:52 Sanjay Case MD is Attending Physician. rt 18:52 Barrie Blanchard MD is Referral Physician. rt 18:53 Barrie Blanchard MD is Hospitalizing Provider. rt 19:00 Patient has correct armband on for positive identification. Bed in low position. Call nj1 light in reach. Adult w/ patient. Administered Medications: 18:20 Drug: NS 0.9% IV 500 ml Route: IV; Rate: bolus; Site: right antecubital; vg1 19:30 Follow up: Response: No adverse reaction; IV Status: Completed infusion; IV Intake: nj1 500ml 18:22 Drug: Pantoprazole IVP 40 mg Route: IVP; Site: right antecubital; vg1 19:57 Follow up: Response: No adverse reaction nj1 18:23 Drug: Ondansetron IVP 4 mg Route: IVP; Site: right antecubital; vg1 19:57 Follow up: Response: No adverse reaction nj1 18:25 Drug: Sucralfate PO 1 grams Route: PO; vg1 19:57 Follow up: Response: No adverse reaction nj1 21:35 Drug: Nicoderm CQ Transdermal Patch 21 mg/24 hr 21 mg {Note: Right upper back.} Route: nj1 Transdermal; Site: affected area; Intake: 19:30 IV: 500ml; Total: 500ml. nj1 Outcome: 18:53 Discharge ordered by MD. rt 18:53 Decision to Hospitalize by Provider. rt 21:40 Patient left the ED. ha1 Signatures: Dispatcher [employer] [facility] QuintanillaCaity mr Anny Soto RN RN Binta Aguilar RN RN [facility] Judy Muñoz RN RN ha1 Jose Dudley MD MD bs3 Justina Dela Cruz jg10 Sanjay Case MD MD rt Jeffrey Jarrett rs5 Deedee Rain RN RN nj1 Corrections: (The following items were deleted from the chart) 16:42 16:40 Allergies: No Known Allergies; iw iw
--- NOTE | 2022-10-09 18:54 | EDPHYS ---
Physician Documentation [facility] Name: Caity Alvarez Age: 62 yrs Sex: Female : 1960 Arrival Date: 10/09/2022 Time: 16:10 Bed 14 Private MD: ED Physician Sanjay Case HPI: 10/09 16:29 This 62 yrs old Female presents to ER via Unassigned with complaints of bs3 Abdominal Pain. 16:29 62 yo female history of COPD current smoker presents with black stools and abdominal bs3 pain for approximately 4 to 5 days she notes that last week she had fevers and went to an urgent care they gave her ceftriaxone and an antibiotic for urinary tract infection but then she still had symptoms and therefore she came in denies any chest pain or shortness of breath she notes that the pain does take her breath away, she has never had this before she had vomiting last week which was initially clear but then she had black stools approximately 2/day for the last several days. She does take Advil approximately 4 pills weekly for chronic arthritis. Historical: - Allergies: 16:40 Hydrocodone-Acetaminophen; vomiting; iw - Home Meds: 16:40 Trelegy Ellipta inhalation [Active]; iw - PMHx: 16:40 COPD; iw - PSHx: 16:40 neck fusion; hysterectomy; section; iw - Immunization history:: Adult Immunizations not immunized, Client reports receiving the 2nd dose of the Covid vaccine. - Social history:: Smoking status: Smoking status: Patient reports the use of cigarette tobacco products, smokes one pack cigarettes per day. ROS: 16:29 Constitutional: Negative for fever, chills bs3 16:29 All other systems are negative. Exam: 16:29 Constitutional: This is a well developed, well nourished patient who is awake, alert, bs3 and in no acute distress. Head/Face: Normocephalic, atraumatic. Eyes: Pupils equal round and reactive to light, extra-ocular motions intact. Lids and lashes normal. ENT: mmm, no posterior phyarngeal erythema Neck: Trachea midline, no thyromegaly, no neck stiffness Chest/axilla: Normal chest wall appearance and motion. Nontender with no deformity. No lesions are appreciated. Cardiovascular: Regular rate and rhythm with a normal S1 and S2. symmetric pulses in upper extremities Respiratory: Lungs have equal breath sounds bilaterally, clear to auscultation, no respiratory distress Abdomen/GI: Tender in left upper quadrant no peritoneal signs, no guarding MS/ Extremity: Pulses equal, no cyanosis. Neurovascular intact. Full, normal range of motion. Neuro: Awake and alert, GCS 15, oriented to person, place, time, and situation. Cranial nerves II-XII grossly intact. Motor strength 5/5 in all extremities. Sensory grossly intact. Psych: Awake, alert, with orientation to person, place and time. Behavior, mood, and affect are within normal limits. Vital Signs: 16:39 BP 97 / 54; Pulse 74; Resp 16; Temp 98.4; Weight 42.18 kg; Height 5 ft. 2 in. ; Pain iw 8/10; 17:37 BP 123 / 54; Pulse 80; Resp 16; Temp 98.2; Pulse Ox 99% on R/A; rs5 18:30 BP 118 / 62; Pulse 66; Resp 17; Pulse Ox 100% on R/A; nj1 19:30 BP 112 / 64; Pulse 65; Resp 20; Pulse Ox 98% on R/A; Pain 8/10; nj1 16:39 Body Mass Index 17.01 (42.18 kg, 157.48 cm) iw 16:39 Pain Scale: Adult iw 19:30 Pain Scale: Adult nj1 MDM: 16:19 Patient medically screened. bs3 16:29 Data reviewed: vital signs, nurses notes. ED course: Possible pancreatitis possible bs3 colitis possible upper GI bleed possibly related to peptic ulcer disease or gastritis given her NSAID use we will check labs we will do CT given her tenderness I discussed the case with Dr. Darnell who recommended admission to the hospitalist he will see the patient as an inpatient will consider transfusion. 18:00 ED course: labs normal, pending, CT, plan for admission to hospitalist for further bs3 management and workup with consult to Dr. Darnell. 19:35 Differential diagnosis: Sepsis, viral syndrome. rt 10/09 16:21 Order name: CBC with Diff; Complete Time: 17:04 bs3 10/09 16:21 Order name: CMP; Complete Time: 17:41 bs3 10/09 16:21 Order name: Lipase; Complete Time: 17:41 bs3 05/24 16:21 Order name: Type And Screen; Complete Time: 18:19 bs3 10/09 16:21 Order name: CT Abd/Pelvis - IV Contrast Only; Complete Time: 18:19 bs3 10/09 16:21 Order name: IV Saline Lock; Complete Time: 16:50 bs3 10/09 16:21 Order name: Labs collected and sent; Complete Time: 16:50 bs3 10/09 16:28 Order name: EKG - Nurse/Tech; Complete Time: 18:26 bs3 Administered Medications: 18:20 Drug: NS 0.9% IV 500 ml Route: IV; Rate: bolus; Site: right antecubital; vg1 19:30 Follow up: Response: No adverse reaction; IV Status: Completed infusion; IV Intake: nj1 500ml 18:22 Drug: Pantoprazole IVP 40 mg Route: IVP; Site: right antecubital; vg1 19:57 Follow up: Response: No adverse reaction nj1 18:23 Drug: Ondansetron IVP 4 mg Route: IVP; Site: right antecubital; vg1 19:57 Follow up: Response: No adverse reaction nj1 18:25 Drug: Sucralfate PO 1 grams Route: PO; vg1 19:57 Follow up: Response: No adverse reaction nj1 21:35 Drug: Nicoderm CQ Transdermal Patch 21 mg/24 hr 21 mg {Note: Right upper back.} Route: nj1 Transdermal; Site: affected area; Disposition Summary: 10/09/22 18:53 Hospitalization Ordered Hospitalization Status: Observation rt Provider: Barrie Blanchard rt Location: Telemetry/MedSurg (observation)(10/09/22 18:53) rt Condition: Stable(10/09/22 18:53) rt Problem: new(10/09/22 18:53) rt Symptoms: are unchanged(10/09/22 18:53) rt Bed/Room Type: Standard rt Room Assignment: [facility](10/09/22 20:46) [facility] Diagnosis - Melena(10/09/22 18:53) rt Forms: - Medication Reconciliation Form rt - SBAR form rt Signatures: Dispatcher [employer] Anny Espinosa RN RN iw Niko Jordan, SHELF STOCKER-C SHELF STOCKER-Cla1 Valencia Sauceda RN RN eb1 Binta Aguilar RN RN vg1 Jose Dudley MD MD bs3 Sanjay Case MD MD rt Deedee Rain, RN RN nj1 Corrections: (The following items were deleted from the chart) 16:42 16:40 Allergies: No Known Allergies; iw iw 18:53 18:53 Home rt rt 18:53 18:53 new rt rt 18:53 18:53 are unchanged rt rt 18:53 18:53 Stable rt rt 18:53 18:53 Melena rt rt 20:46 18:53 rt eb1
--- NOTE | 2022-10-09 19:12 | P.HP ---
Certification for Inpatient Patient admitted to: Observation With expected LOS: <2 Midnights Patient will require the following post-hospital care: None Practitioner: I am a practitioner with admitting privileges, knowledge of patient current condition, hospital course, and medical plan of care. Services: Services provided to patient in accordance with Admission requirements found in Title 42 Section 412.3 of the Code of Federal Regulations Patient History Date of Service: 10/09/22 Reason for admission: Melena History of Present Illness: 62-year-old female with history of COPD presents emergency department with chief complaint of melena, left-sided abdominal pain. She reports the abdominal pain started on , developed melena on Friday reports approximately 2 dark tarry stools per day, last episode of melena was last night. She reports a recent illness with fevers for which she was taking NSAIDs regularly for. Labs are unremarkable CT of the abdomen pelvis negative for acute findings. ED provider wishes to admit under observation for melena. Case was discussed with patient's GI doctor Dr. Zimmerman who will see her at hospital. - Past Medical/Surgical History -: COPD -: Cervical fusion -: Hysterectomy Psychosocial/ Personal History: Patient lives at home with family - Family History Family History: Reviewed- Non-Contributory - Social History Smoking Status: Current every day smoker Counseled patient to stop smoking for: less than 10 minutes Smoking therapy provided: Yes Alcohol use: No CD- Drugs: No Caffeine use: Yes Place of Residence: Home Review of Systems 10-point ROS is otherwise unremarkable Gastrointestinal: Nausea, Abdominal Pain, Melena Physical Examination - Physical Exam General: Alert, In no apparent distress, Oriented x3 HEENT: Atraumatic, PERRLA, Mucous membr. moist/pink, EOMI, Sclerae nonicteric Neck: Supple, 2+ carotid pulse no bruit, No LAD, Without JVD or thyroid abnormality Respiratory: Clear to auscultation bilaterally, Normal air movement Cardiovascular: Regular rate/rhythm, Normal S1 S2 Gastrointestinal: Normal bowel sounds, No tenderness Musculoskeletal: No tenderness Integumentary: No rashes Neurological: Normal gait, Normal speech, Normal strength at 5/5 x4 extr, Normal tone, Normal affect Lymphatics: No axilla or inguinal lymphadenopathy - Studies Laboratory Data (last 24 hrs) 10/09/22 16:48: Sodium 140, Potassium 3.9, BUN 18, Creatinine 0.88, Glucose 94, Total Bilirubin 0.4, AST 15, ALT 23, Alkaline Phosphatase 61, Lipase 77 H 10/09/22 16:48: WBC 6.20, Hgb 13.3, Hct 38.9, Plt Count 418 H Assessment and Plan - Plan Assessment: Melena COPD Plan: Melena IV PPI, n.p.o. after midnight, repeat hemoglobin tonight, GI consult. Suspect this is related to NSAID use/gastritis or gastric ulcer. COPD Continue home meds, as needed nebulizer treatments. DVT PPX: SCD Code status: Full Discharge Plan: Home Plan to discharge in: 24 Hours - Advance Directives Does patient have a Living Will: No Does patient have a Durable POA for Healthcare: No - Code Status/Comfort Care Code Status Assessed: Yes (Full code) Critical Care: No Time Spent Managing Pts Care (In Minutes): 55
[2022-10-09] MEDS ORDERED: NICOTINE 21 MG/PAT TD ONE (21:35)
[2022-10-09] MEDS ORDERED: MORPHINE 2 MG/ML SYR IV PRN (21:56)
[2022-10-09] MEDS ORDERED: SODIUM CHLORIDE 0.9% 10ML INJ IV PRN (21:56)
[2022-10-10] VITALS: BMI 16.9
[2022-10-10] MEDS: NA CHLORIDE 0.9% 1,000 ML IV SCH ×2 (04:21→08:50)
[2022-10-10] MEDS ORDERED: MORPHINE 2 MG/ML SYR IV ONE (04:32)
[2022-10-10 06:22] LABS: Absolute Lymphocytes (CBC) 1.1 K/uL (0.7-4.9); Hematocrit 34.4 % (36.0-45.0); Lymphocytes % 22.9 % (15.3-44.8); MCV 93.9 fL (80-100); MPV 6.2 fL (7.6-11.3); RBC Red Blood Cell Count 3.66 M/uL (3.86-4.86)
--- NOTE | 2022-10-10 08:46 | P.PN ---
Subjective Date of Service: 10/10/22 Chief Complaint: Melena Subjective: No new changes, Improving Physical Examination - Vital Signs Temperature: 97.1 F Blood Pressure: 105/54 Pulse: 61 Respirations: 18 Pulse Ox (%): 96 - Physical Exam General: Alert, Oriented x3 HEENT: Atraumatic, Normocephalic Neck: Supple Respiratory: Normal air movement Cardiovascular: Regular rate/rhythm, Normal S1 S2 Gastrointestinal: Soft and benign Musculoskeletal: No swelling Neurological: Normal speech - Studies Laboratory Data (last 24 hrs) 10/09/22 16:48: Sodium 140, Potassium 3.9, BUN 18, Creatinine 0.88, Glucose 94, Total Bilirubin 0.4, AST 15, ALT 23, Alkaline Phosphatase 61, Lipase 77 H 10/09/22 16:48: WBC 6.20, Hgb 13.3, Hct 38.9, Plt Count 418 H Assessment And Plan - Plan Peptic ulcer disease: Patient does have melena stools and there is concern for peptic ulcer from NSAID use among other issues. She is n.p.o. for EGD today. Continue PPI therapy. Follow GI recommendations postprocedure. History of COPD: No active issues. Will monitor closely. Continue medication. Disposition: Pending endoscopy.
[2022-10-10] MEDS: SUCRALFATE 1 GM TABLET PO SCH ×4 (08:50→20:59)
[2022-10-10] MEDS: PANTOPRAZOLE 40 MG INJ IVP SCH ×2 (08:50→21:00)
[2022-10-10] MEDS ORDERED: Ringers Lactate 1,000 ML IV ONE (11:47)
--- NOTE | 2022-10-10 12:32 | EKG ---
Test Date: 2022-10-09 Test Time: 18:16:54 Senior Controls Technician: JUDITH MEASUREMENT RESULTS: Intervals: Rate: 68 MD: 156 QRSD: 80 QT: 410 QTc: 435 [place]: P: 84 MD: 156 QRS: 42 T: 69 INTERPRETIVE STATEMENTS: Normal sinus rhythm Cannot rule out Anterior infarct, age undetermined Abnormal ECG No previous ECG available for comparison Electronically Signed On 10-10-22 12:31:42 CDT by Pranav Venegas
[2022-10-10] MEDS ORDERED: EPINEPHRINE/PF 1 MG/ML AMP ONE (13:31)
[2022-10-10] MEDS ORDERED: propofoL 200 MG/20 ML VIAL IV ONE (13:38)
[2022-10-10] MEDS ORDERED: LIDOCAINE 1% MPF 30 ML VIAL ONE (13:38)
[2022-10-10] MEDS ORDERED: GOLYTELY 4000 ML PO ONE (15:00)
[2022-10-10] MEDS ORDERED: MAGNESIUM CITRATE 300 ML BOT PO ONE (15:00)
[2022-10-10] MEDS: METOCLOPRAMIDE 10 MG/2mL INJ IV SCH ×2 (15:10→20:59)
[2022-10-10] MEDS: ENSURE ENLIVE 237 ML CAN PO SCH ×2 (20:59→21:00)
[2022-10-11] MEDS: METOCLOPRAMIDE 10 MG/2mL INJ IV SCH (02:52)
[2022-10-11] MEDS: NA CHLORIDE 0.9% 1,000 ML IV SCH ×3 (03:37→15:00)
[2022-10-11 05:33] LABS: Hematocrit 32.9 % (36.0-45.0); Lymphocytes % 26.2 % (15.3-44.8); MCV 93.2 fL (80-100); MPV 6.1 fL (7.6-11.3); RBC Red Blood Cell Count 3.53 M/uL (3.86-4.86)
[2022-10-11 05:50] LABS: Potassium 3.5 mEq/L (3.5-5.1)
[2022-10-11] MEDS: SUCRALFATE 1 GM TABLET PO SCH ×3 (07:30→17:58)
[2022-10-11] MEDS: ENSURE ENLIVE 237 ML CAN PO SCH (07:33)
[2022-10-11] MEDS: PANTOPRAZOLE 40 MG INJ IVP SCH (09:05)
--- NOTE | 2022-10-11 12:14 | RAD REPORT ---
EXAM DESCRIPTION: MRI - MRA Abdomen W/Wo Cont - 10/11/2022 8:27 am CLINICAL HISTORY: Abdominal pain COMPARISON: CT October 09, 2022 TECHNIQUE: Magnetic resonance angiogram of the aorta and splanchnic vessels. 3D MIPS reconstruction performed. 20 cc MultiHance administered intravenously FINDINGS: The celiac and superior mesenteric arteries are normal caliber. Abdominal aorta unremarkable Minimal plaque iliac arteries Mild to moderate narrowing of proximal left renal artery. IMPRESSION: Celiac and superior mesenteric arteries are normal caliber
[2022-10-11] MEDS ORDERED: Ringers Lactate 1,000 ML IV ONE (13:36)
[2022-10-11] MEDS ORDERED: propofoL 200 MG/20 ML VIAL IV ONE (14:16)
[2022-10-11 15:20] VITALS: O2SAT 95
[2022-10-11 17:49] VITALS: BP 115/57; TEMP 97.6
--- NOTE | 2022-10-11 18:58 | RAD REPORT ---
EXAM DESCRIPTION: RAD - Small Bowel Series - 10/11/2022 5:45 pm CLINICAL HISTORY: occult GI bleeding / melena COMPARISON: Abdomen Pelvis W Contrast dated 10/09/2022 TECHNIQUE: Serial AP views of the abdomen were obtained for studying the small bowel following oral administration of barium contrast. FINDINGS: Lard Renderer film shows a nonspecific bowel gas pattern. No obstruction or free air. Moderate gas eous distention of the proximal colon on the welder and fitter images. No suspicious calcifications. Gastric size and mucosal fold pattern are normal. No delay in transit of contrast into the small jamal l. Small bowel is normal in diameter with no mucosal fold thickening. No abnormal filling defects. No intrinsic or extrinsic mass identifiable. Terminal ileum has a normal appearance. Transit time to th e colon is normal 1 hour. IMPRESSION: Normal small bowel series.
[2022-10-11] MEDS ORDERED: Rifaximin 550 MG Tab PO SCH (21:00)
== END 2022-10-11 18:30 | disposition home or self-care (01) | DRG 379 ==
LOC: ER 16:10 → ERHOLD 19:06 → 4TH 21:30 → OBSVTOIN 10-10 16:11
PROVIDERS: ADMIT Internal Medicine Nephrology; ATTEND Hospitalist
PROC: 0DB78ZX Excision of Stomach, Pylorus, Via Natural or Artificial Opening Endoscopic, Diagnostic (ICD-10-PCS; 2022-10-10)
PROC: 0DBM8ZX Excision of Descending Colon, Via Natural or Artificial Opening Endoscopic, Diagnostic (ICD-10-PCS; 2022-10-10)
PROC: 0DBP8ZX Excision of Rectum, Via Natural or Artificial Opening Endoscopic, Diagnostic (ICD-10-PCS; 2022-10-10)
PROC: 0DBB8ZX Excision of Ileum, Via Natural or Artificial Opening Endoscopic, Diagnostic (ICD-10-PCS; 2022-10-10)
PROC: 0DB68ZX Excision of Stomach, Via Natural or Artificial Opening Endoscopic, Diagnostic (ICD-10-PCS; principal; 2022-10-10 12:30)
DX: K29.01 Acute gastritis with bleeding (principal); M19.90 Unspecified osteoarthritis, unspecified site; J44.9 Chronic obstructive pulmonary disease, unspecified; D12.4 Benign neoplasm of descending colon; K27.4 Chronic or unspecified peptic ulcer, site unspecified, with hemorrhage; F17.210 Nicotine dependence, cigarettes, uncomplicated; Z88.5 Allergy status to narcotic agent; Z90.710 Acquired absence of both cervix and uterus; Z79.899 Other long term (current) drug therapy
CPT/HCPCS: 36415; 74177; 74250; 80048; 80053; 83690; 85018; 85025; 86850; 86900; 86901; 88305; 88312; 93005; 96361; 96374; 96375; 99284; A9577; C8902; C9113; G0378; J0171; J2001; J2270; J2405; J2704; J2765; J7030; J7040; J7120; Q9967